=== PATIENT | female | born 1975 | race Caucasian/White ===

== ENCOUNTER 2020-12-27 12:03 | Emergency (ER) | payer OTHER ==
[~2020-12-27 12:03] MED LIST: ANTIVERT25 MG PO; EFFEXOR XR150 MG PO; FLEXERIL10 MG PO; HCTZ25 MG PO; HYDROCODON-ACE1 EAC4 PO; IBUPROFEN800 MG PO; MEDROL 4MG DOSEP4 MG PO; PERCOCET 5-3251 EACH PO; PRILOSEC20 MG PO; ROBAXIN750 MG PO; VICTOZA 2-0.6 MG/0.1 IM; VOLTAREN **OUT75 MG PO; ZANAFLEX2 MG PO
[2020-12-27 12:29] LABS: BASOPHIL 0.4 % (0-2); EOSINOPHIL 1.5 % (0-5); HGB 13.5 g/dl (12.5-16.0); MCH 29.3 pg (25.0-31.0); MCHC 32.1 g/dL (32.0-36.0); MCV 91.1 fL (78.0-100.0); MONOCYTE 9.9 % (0-12); MPV 11.6 fL (6.0-9.5); NEUTROPHIL 67.1 % (41-80); NRBC 0; PLT 268 K/uL (150-400); RBC 4.61 M/uL (4.20-5.40); RDW 13.1 % (11.5-14.0); WBC 6.7 K/uL (4.0-10.5)
[2020-12-27 12:50] LABS: ALBUMIN 3.2 g/dL (3.4-5.0); BILIRUBIN - TOTAL 0.3 mg/dL (0.2-1.0); BUN/CREAT RATIO (CALC) 13.2 RATIO; CREATININE 1.06 mg/dL (0.51-0.95); GLOBULIN (CALCULATION) 4.5 g/dL; POTASSIUM 3.5 mmol/L (3.5-5.1); TOTAL PROTEIN 7.7 g/dL (6.4-8.2)
== END 2020-12-27 13:50 | disposition home or self-care (01) ==
LOC: FER 12:03
PROVIDERS: Emergency Medicine
DX: R00.2 Palpitations (principal)
CPT/HCPCS: 36415; 71045; 80053; 84484; 85025; 93005

== ENCOUNTER 2021-07-13 21:35 | Emergency (ER) | payer OTHER ==
[2021-07-13 23:39] LABS: HCT 45.3 % (37.0-47.0); HGB 14.7 g/dl (12.5-16.0); MCH 28.8 pg (25.0-31.0); MCHC 32.5 g/dL (32.0-36.0); MCV 88.8 fL (78.0-100.0); RBC 5.1 M/uL (4.20-5.40); RDW 12.9 % (11.5-14.0)
[2021-07-13 23:49] LABS: ALBUMIN 3.1 g/dL (3.4-5.0); BILIRUBIN - TOTAL 0.4 mg/dL (0.2-1.0); BUN/CREAT RATIO (CALC) 13.2 RATIO; CREATININE 1.06 mg/dL (0.51-0.95); GLOBULIN (CALCULATION) 4.1 g/dL; POTASSIUM 3.3 mmol/L (3.5-5.1); TOTAL PROTEIN 7.2 g/dL (6.4-8.2)
[2021-07-13 23:56] LABS: BILIRUBIN NEGATIVE (NEGATIVE); BLOOD TRACE-INTACT Ery/uL (NEGATIVE); CLARITY CLEAR (CLEAR); COLOR YELLOW (YELLOW); GLUCOSE (U) NORMAL (NORMAL); LEUKOCYTES 1+ Leu/uL (NEGATIVE); NITRITE NEGATIVE (NEGATIVE); PROTEIN NEGATIVE (NEGATIVE); UROBILINOGEN 0.2 mg/dL (0.2-1.0)
[2021-07-14 00:11] LABS: BACTERIA 2+; SQUAMOUS EPITHELIAL CELLS 20-50; URINARY RBC RARE
[2021-07-14] MEDS ORDERED: MACROBID100 MG PO (00:19)
[2021-07-14] MEDS ORDERED: PHENERGAN25 M1 PO (00:19)
[2021-07-14] MEDS ORDERED: DIFLUCAN150 MG PO (00:22)
== END 2021-07-14 00:29 | disposition home or self-care (01) ==
LOC: FER 21:35
PROVIDERS: Emergency Medicine
DX: R19.7 Diarrhea, unspecified (principal); I10 Essential (primary) hypertension; R11.2 Nausea with vomiting, unspecified
CPT/HCPCS: 36415; 80053; 81001; J0780; J7030

== ENCOUNTER 2021-09-10 16:05 | Emergency (ER) | payer OTHER ==
[~2021-09-10 16:05] MED LIST changes: +DIFLUCAN150 MG PO; +MACROBID100 MG PO; +PHENERGAN25 M1 PO
[2021-09-10 20:21] LABS: BILIRUBIN NEGATIVE (NEGATIVE); BLOOD 3+ Ery/uL (NEGATIVE); CLARITY CLEAR (CLEAR); COLOR YELLOW (YELLOW); GLUCOSE (U) NORMAL (NORMAL); LEUKOCYTES NEGATIVE Leu/uL (NEGATIVE); NITRITE NEGATIVE (NEGATIVE); PROTEIN NEGATIVE (NEGATIVE); SPECIFIC GRAVITY 1.015 (1.001-1.030); UROBILINOGEN 0.2 mg/dL (0.2-1.0)
[2021-09-10 20:30] LABS: BASOPHIL 0.4 % (0-2); EOSINOPHIL 0.4 % (0-5); HCT 38.4 % (37.0-47.0); HGB 12.4 g/dl (12.5-16.0); LYMPHOCYTE 21.4 % (15-48); MCH 28.8 pg (25.0-31.0); MCHC 32.3 g/dL (32.0-36.0); MCV 89.1 fL (78.0-100.0); MONOCYTE 9.9 % (0-12); MPV 11.8 fL (6.0-9.5); NEUTROPHIL 67.7 % (41-80); NRBC 0; PLT 271 K/uL (150-400); RBC 4.31 M/uL (4.20-5.40); RDW 13.5 % (11.5-14.0)
[2021-09-10 20:33] LABS: WBC 9.1 K/uL (4.0-10.5)
[2021-09-10 20:39] LABS: BACTERIA 2+; SQUAMOUS EPITHELIAL CELLS >50
[2021-09-10 20:43] LABS: BUN/CREAT RATIO (CALC) 9.3 RATIO; CREATININE 0.97 mg/dL (0.51-0.95); POTASSIUM 2.5 mmol/L (3.5-5.1)
[2021-09-10] MEDS ORDERED: BACTRIM DS TAB1 EACH PO (21:38)
[2021-09-10] MEDS ORDERED: DIFLUCAN150 MG PO (21:38)
== END 2021-09-10 22:14 | disposition home or self-care (01) ==
LOC: FER 16:05
PROVIDERS: Internal Medicine
DX: N93.9 Abnormal uterine and vaginal bleeding, unspecified (principal); E87.6 Hypokalemia; N39.0 Urinary tract infection, site not specified; I10 Essential (primary) hypertension; Z79.899 Other long term (current) drug therapy
CPT/HCPCS: 36415; 80048; 81001; 85025; J0696; J3475

== ENCOUNTER 2022-01-05 17:43 | Emergency (ER) | payer OTHER ==
[~2022-01-05 17:43] MED LIST changes: +BACTRIM DS TAB1 EACH PO
[2022-01-05 20:18] LABS: BASOPHIL 0.2 % (0-2); EOSINOPHIL 0 % (0-5); HCT 48.8 % (37.0-47.0); HGB 15.7 g/dl (12.5-16.0); LYMPHOCYTE 7.8 % (15-48); MCH 28.6 pg (25.0-31.0); MCHC 32.2 g/dL (32.0-36.0); MCV 89.1 fL (78.0-100.0); MONOCYTE 12.8 % (0-12); NEUTROPHIL 78.5 % (41-80); NRBC 0; PLT 379 K/uL (150-400); RBC 5.48 M/uL (4.20-5.40); RDW 12.9 % (11.5-14.0)
[2022-01-05 20:19] LABS: WBC 22.5 K/uL (4.0-10.5)
[2022-01-05 20:34] LABS: ALBUMIN 3.3 g/dL (3.4-5.0); BILIRUBIN - TOTAL 0.5 mg/dL (0.2-1.0); BUN/CREAT RATIO (CALC) 13.2 RATIO; CREATININE 1.52 mg/dL (0.51-0.95); GLOBULIN (CALCULATION) 6.1 g/dL; POTASSIUM 3.5 mmol/L (3.5-5.1); TOTAL PROTEIN 9.4 g/dL (6.4-8.2)
[2022-01-05 20:54] LABS: LACTIC ACID 1.7 mmol/L (0.4-1.9)
== END 2022-01-05 23:58 ==
LOC: FER 17:43
PROVIDERS: Physician Assistant
DX: L03.115 Cellulitis of right lower limb (principal); Z28.310 Unvaccinated for COVID-19
CPT/HCPCS: 36415; 73610; 73630; 80053; 83605; 83690; 85025; 87040; 96372; J1170; J3370; J7030; J7050

== ENCOUNTER 2022-01-24 19:00 | Emergency (ER) | payer OTHER | END 2022-01-24 19:59 | disposition home or self-care (01) | LOC: FER 19:00 | DX: Z45.2 Encounter for adjustment and management of vascular access device (principal); K21.9 Gastro-esophageal reflux disease without esophagitis; Z79.899 Other long term (current) drug therapy; Z28.310 Unvaccinated for COVID-19 | CPT/HCPCS: J1642 ==

== ENCOUNTER 2022-01-27 06:45 | Emergency (ER) | payer OTHER ==
[2022-01-28] MEDS ORDERED: DIFLUCAN150 MG PO (11:25)
== END 2022-01-27 08:27 | disposition home or self-care (01) ==
LOC: FER 06:45
DX: Z45.2 Encounter for adjustment and management of vascular access device (principal); Z28.310 Unvaccinated for COVID-19
CPT/HCPCS: 99283

== ENCOUNTER 2022-01-28 06:21 | Emergency (ER) | payer OTHER ==
[2022-01-28 08:28] LABS: BASOPHIL 0.3 % (0-2); EOSINOPHIL 0.2 % (0-5); HCT 30.9 % (37.0-47.0); HGB 9.5 g/dl (12.5-16.0); LYMPHOCYTE 20.2 % (15-48); MCH 28.3 pg (25.0-31.0); MCHC 30.7 g/dL (32.0-36.0); MONOCYTE 12.2 % (0-12); NEUTROPHIL 65.9 % (41-80); NRBC 0; RBC 3.36 M/uL (4.20-5.40); RDW 13.4 % (11.5-14.0); WBC 16.7 K/uL (4.0-10.5)
[2022-01-28 08:32] LABS: PLT 1088 K/uL (150-400)
[2022-01-28 09:03] LABS: ALBUMIN 1.9 g/dL (3.4-5.0); BILIRUBIN - TOTAL 0.4 mg/dL (0.2-1.0); BUN/CREAT RATIO (CALC) 19.8 RATIO; C-REACTIVE PROTEIN 8.2 mg/dL (<=0.90); CREATININE 1.06 mg/dL (0.51-0.95); GLOBULIN (CALCULATION) 5.5 g/dL; POTASSIUM 3.6 mmol/L (3.5-5.1); TOTAL PROTEIN 7.4 g/dL (6.4-8.2)
[2022-01-28 09:54] LABS: LACTIC ACID 0.9 mmol/L (0.4-1.9)
[2022-01-28] MEDS ORDERED: DIFLUCAN150 MG PO (11:25)
== END 2022-01-28 11:26 | disposition home or self-care (01) ==
LOC: FER 06:21
PROVIDERS: Emergency Medicine; Internal Medicine
DX: T82.594A Other mechanical complication of infusion catheter, initial encounter (principal); D75.839 Thrombocytosis, unspecified
CPT/HCPCS: 36415; 71045; 80053; 83605; 84145; 85025; 86140; 87070; 93971; J1170; J2405; J7512

== ENCOUNTER 2022-02-02 10:21 | Emergency (ER) | payer OTHER ==
[2022-02-02 10:58] LABS: BASOPHIL 0.3 % (0-2); EOSINOPHIL 0.2 % (0-5); HCT 36.7 % (37.0-47.0); HGB 11.3 g/dl (12.5-16.0); LYMPHOCYTE 17.5 % (15-48); MCHC 30.8 g/dL (32.0-36.0); MCV 91.1 fL (78.0-100.0); MONOCYTE 13.3 % (0-12); MPV 9.6 fL (6.0-9.5); NEUTROPHIL 67.3 % (41-80); NRBC 0; PLT 776 K/uL (150-400); RBC 4.03 M/uL (4.20-5.40); RDW 13.6 % (11.5-14.0); WBC 15.9 K/uL (4.0-10.5)
[2022-02-02 11:05] LABS: INR 1.11 (0.9-1.2); PROTHROMBIN TIME 13.7 SECONDS (11.8-13.4)
[2022-02-02 11:06] LABS: PTT 28.2 SECONDS (24.4-34.7)
[2022-02-02 11:15] LABS: ALBUMIN 2.4 g/dL (3.4-5.0); BILIRUBIN - TOTAL 0.3 mg/dL (0.2-1.0); BUN/CREAT RATIO (CALC) 19.4 RATIO; CREATININE 1.03 mg/dL (0.51-0.95); GLOBULIN (CALCULATION) 5.2 g/dL; MAGNESIUM 1.9 mg/dL (1.8-2.4); POTASSIUM 3.7 mmol/L (3.5-5.1); TOTAL PROTEIN 7.6 g/dL (6.4-8.2)
== END 2022-02-02 15:16 | disposition home or self-care (01) ==
LOC: FER 10:21
PROVIDERS: Emergency Medicine
DX: R07.89 Other chest pain (principal); U07.1 COVID-19; D75.839 Thrombocytosis, unspecified; I10 Essential (primary) hypertension; Z28.310 Unvaccinated for COVID-19
CPT/HCPCS: 36415; 71045; 71275; 80053; 83735; 84484; 85025; 85610; 85730; 93005; Q9967; U0002

== ENCOUNTER → 2022-06-06 | Day surgery (SDC) | payer OTHER ==
[~2022-06-06] VITALS: Ht 160 cm; Wt 90.3 kg
[~2022-06-06] MED LIST changes: +ALDACTONE25 MG PO; +BIOTIN5000 MCG PO; +CRESTOR40 MG PO; +FOLIC ACID1 M1 PO; +LASIX20 MG PO; +MELOXICAM15 MG PO; +POTASSIUM CHLO10 MEQ PO; +PROZAC20 MG PO; +SILVADENE20 GM TOP; +SYNTHROID112 MC1 PO; +VITAMIN B COMP1 EAC1 PO; +VITAMIN D325 MC1 PO
== END | disposition home or self-care (01) ==
LOC: FAS 06:28
DX: A63.0 Anogenital (venereal) warts (principal); E78.5 Hyperlipidemia, unspecified; I10 Essential (primary) hypertension; E03.9 Hypothyroidism, unspecified; G47.33 Obstructive sleep apnea (adult) (pediatric)
CPT/HCPCS: J0690; J1100; J2250; J2405; J2704; J3010; J7120